=== PATIENT | male | born 1960 | race Caucasian/White ===

== ENCOUNTER 2023-03-11 08:37 | Outpatient (RCR) | payer OTHER, SELFPAY | END 2023-03-11 23:59 | disposition home or self-care (01) | LOC: RPT 08:37 | PROVIDERS: ATTENDING PHYSICIAN Student in an Organized Health Care Education/Training Program | DX: M43.16 Spondylolisthesis, lumbar region (principal); M51.36 Other intervertebral disc degeneration, lumbar region; Z73.6 Limitation of activities due to disability; M54.6 Pain in thoracic spine; Z98.1 Arthrodesis status | CPT/HCPCS: 97010; 97110; 97140; 97162 ==

== ENCOUNTER 2023-03-20 13:15 | Outpatient (RCR) | payer OTHER, SELFPAY | END 2023-04-10 13:06 | disposition home or self-care (01) | LOC: RPT 13:15 | PROVIDERS: ATTENDING PHYSICIAN Student in an Organized Health Care Education/Training Program | DX: M43.16 Spondylolisthesis, lumbar region (principal); M51.36 Other intervertebral disc degeneration, lumbar region; Z73.6 Limitation of activities due to disability | CPT/HCPCS: 97010; 97110 ==

== ENCOUNTER 2024-09-14 14:05 | Outpatient (RCR) | payer OTHER, SELFPAY | END 2024-09-14 23:59 | disposition home or self-care (01) | LOC: RPT 14:05 | PROVIDERS: ATTENDING PHYSICIAN Specialist; FAMILY PHYSICIAN Family Medicine | DX: Z47.1 Aftercare following joint replacement surgery (principal); Z73.6 Limitation of activities due to disability; R26.2 Difficulty in walking, not elsewhere classified; M62.81 Muscle weakness (generalized); M25.562 Pain in left knee; Z96.652 Presence of left artificial knee joint | CPT/HCPCS: 97010; 97110; 97116; 97163; 97530 ==

== ENCOUNTER 2024-10-12 13:13 | Outpatient (RCR) | payer OTHER, SELFPAY | END 2024-10-12 23:59 | disposition home or self-care (01) | LOC: RPT 13:13 | PROVIDERS: ATTENDING PHYSICIAN Specialist; FAMILY PHYSICIAN Family Medicine | DX: Z47.1 Aftercare following joint replacement surgery (principal); Z73.6 Limitation of activities due to disability; R26.2 Difficulty in walking, not elsewhere classified; M62.81 Muscle weakness (generalized); M25.562 Pain in left knee; Z96.652 Presence of left artificial knee joint | CPT/HCPCS: 97010; 97110; 97140; 97530 ==

== ENCOUNTER 2024-11-07 11:06 | Outpatient (RCR) | payer OTHER, SELFPAY | END 2024-11-07 23:59 | disposition home or self-care (01) | LOC: RPT 11:06 | PROVIDERS: ATTENDING PHYSICIAN Specialist; FAMILY PHYSICIAN Family Medicine | DX: Z47.1 Aftercare following joint replacement surgery (principal); Z73.6 Limitation of activities due to disability; R26.2 Difficulty in walking, not elsewhere classified; M62.81 Muscle weakness (generalized); M25.562 Pain in left knee; Z96.652 Presence of left artificial knee joint | CPT/HCPCS: 97010; 97110; 97140; 97530 ==

== ENCOUNTER 2024-12-14 11:15 | Outpatient (RCR) | payer OTHER, SELFPAY | END 2024-12-14 23:59 | disposition home or self-care (01) | LOC: RPT 11:15 | PROVIDERS: ATTENDING PHYSICIAN Specialist; FAMILY PHYSICIAN Family Medicine | DX: Z47.1 Aftercare following joint replacement surgery (principal); Z73.6 Limitation of activities due to disability; R26.2 Difficulty in walking, not elsewhere classified; M62.81 Muscle weakness (generalized); M25.562 Pain in left knee; Z96.652 Presence of left artificial knee joint | CPT/HCPCS: 97110; 97140; 97530 ==

== ENCOUNTER 2024-12-22 08:38 | Outpatient (RCR) | payer OTHER, SELFPAY | END 2024-12-23 06:42 | disposition home or self-care (01) | LOC: RPT 08:38 | PROVIDERS: ATTENDING PHYSICIAN Specialist; FAMILY PHYSICIAN Family Medicine | DX: Z47.1 Aftercare following joint replacement surgery (principal); Z73.6 Limitation of activities due to disability; Z96.652 Presence of left artificial knee joint; R26.2 Difficulty in walking, not elsewhere classified; M62.81 Muscle weakness (generalized); M25.562 Pain in left knee | CPT/HCPCS: 97110; 97530 ==